=== PATIENT | male | born 1990 | race Caucasian/White ===

== ENCOUNTER → 2020-02-28 18:46 | Outpatient (BNVA) | payer OTHER, SELFPAY | PROVIDERS: Visit Provider Nurse Practitioner Family | DX: Z11.59 Encounter for screening for other viral diseases (principal); Z20.828 Contact with and (suspected) exposure to other viral communicable diseases | CPT/HCPCS: 87635 ==

== ENCOUNTER 2020-04-02 15:22 | Emergency (ER) | payer SELFPAY ==
[2020-04-02 15:22] VITALS: BP 165/84; PULSE 83; RESP 12; TEMP 36.4; O2SAT 99; BMI 27.4
[2020-04-02 15:28] VITALS: BP 152/97; PULSE 97; RESP 17; O2SAT 99
--- NOTE | 2020-04-02 15:39 | ED_ITS ---
HPI - Altered Mental Status General: Chief Complaint: Altered Mental Status Stated Complaint: Unresponsive Time Seen by Provider: 04/02/20 15:34 History of Present Illness: HPI narrative: 29-year-old male brought in by EMS unresponsive he was found on the street with a GCS of 3 in route here he was given Narcan 0.4 mg by nasal spray and had immediate response. Patient was awake and alert and oriented he denies using any drugs he is unsure of what happened he is knows where he is at but does not know how he got here. He vehemently denies use of any illicit narcotics or prescription narcotics. MD complaint: altered mental status, confusion and decreased responsiveness Onset (ago): unknown Severity: severe Context: drug abuse Associated symptoms: Deny auditory hallucinations, visual hallucinations, delusions, depression, homicidal ideation, racing thoughts or suicidal ideation Review of Systems Const: Denies: fever(s), chills, body aches, change in appetite, fatigue or malaise Card: Denies: chest pain, edema, dyspnea on exertion or orthopnea Resp: Denies: dyspnea, productive cough or non-productive cough GI: Denies: abdominal pain, nausea, vomiting, hematemesis, coffee ground emesis, diarrhea, constipation, bloating, hematochezia or melena : Denies: flank pain, dysuria, urinary frequency or urinary urgency Psych: Denies: depression, visual hallucinations, auditory hallucinations, suicidal ideation or homicidal ideation Physical Exam Const: COMMON NORMALS: no acute distress GENERAL APPEARANCE: cooperative and comfortable HENMT: COMMON NORMALS: normocephalic, atraumatic, hearing grossly normal bilaterally, external ears normal, EAC's normal, TM's normal bilaterally, Normal nasal mucous membranes and turbinates present, moist oral mucous membranes and oropharynx normal HEAD & SCALP: normocephalic and atraumatic NOSE: Normal nasal mucous membranes and turbinates present EXTERNAL EAR: Yes external ears normal EXTERNAL AUDITORY CANAL: EAC's normal TYMPANIC MEMBRANE: TM's normal bilaterally Eye: COMMON NORMALS: conjunctivae normal and no scleral icterus CONJUNCTIVA: Yes conjunctivae normal Neck/C-Spine: COMMON NORMALS: full ROM, no lymphadenopathy, supple and no JVD Lymph: LYMPHATIC: no lymphadenopathy noted and no lymphedema noted Resp: COMMON NORMALS: normal respiratory effort, No retractions, No use of accessory muscles and clear to auscultation bilaterally AUSCULTATION: clear to auscultation bilaterally Cardio: COMMON NORMALS: no JVD, regular rate, regular rhythm and No murmurs present (Cardio) RATE: regular rate RHYTHM: regular rhythm GI: COMMON NORMALS: Soft to palpation and No hepatosplenomegaly present AUSCULTATION: Yes normoactive bowel sounds PALPATION: Yes Soft to palpation, No Tenderness to palpation present (GI), No Guarding due to palpation present (GI) and Yes No hepatosplenomegaly present Extremity: COMMON NORMALS: normal to inspection, capillary refill normal, no clubbing, cyanosis or edema, no calf tenderness and no pedal edema Psych: THOUGHT CONTENT: No delusions Skin: COMMON NORMALS: no rashes or lesions noted GENERAL SKIN EXAM: no rashes or lesions noted Course Vital Signs: Vital signs: Vital Signs Temperature 97.5 F L 04/02/20 15:22 Pulse Rate 112 H 04/02/20 15:52 Respiratory Rate 16 04/02/20 15:52 Blood Pressure 152/97 04/02/20 15:28 Pulse Oximetry 99 04/02/20 15:52 MDM - Altered Mental Status MDM Narrative: Medical decision making narrative: After arrival patient decided leave AMA. I tried to dissuade him told him that we did not know what it actually happened for certain and he needed further evaluation without that he could have a recurrence could even he expressed understanding and wishes to leave he is alert and oriented x3 able to make his own decisions there is no reason at this point to prevent him from leaving and he refuses to be persuaded otherwise. He was advised he can return at any point to be reevaluated. At the time patient left he is awake and alert oriented he expresses understanding of the risks of leaving he denies any suicidal or homicidal intent I have nothing to justify keeping him here in the emergency room against his wishes at this point. Lab Data: Labs: Lab Results 04/02/20 04/02/20 Range/Units 15:31 15:31 WBC 9.7 (4.0-10.0) 10^3/ uL RBC 4.77 (4.1-5.3) 10^6/u L Hgb 13.5 (11.7-16.6) g/dL Hct 41.2 L (42.0-52.0) % MCV 86.4 (80-94) fL MCH 28.3 (28.0-34.0) pg MCHC 32.8 (30.0-36.0) g/dL RDW 13.1 (12.1-15.1) % Plt Count 266 (130-400) 10^3/c mm MPV 10.0 (7.4-10.4) fL Neut % (Auto) 53.2 % Lymph % (Auto) 31.9 % [place] % (Auto) 9.4 % Eos % (Auto) 4.6 % Baso % (Auto) 0.7 % Neut # (Auto) 5.13 (1.8-7.7) 10^3/u L Lymph # (Auto) 3.1 (0.8-4.8) 10^3/u L [place] # (Auto) 0.9 (0.2-0.9) 10^3/u L Eos # (Auto) 0.4 (0.0-0.8) 10^3/u L Baso # (Auto) 0.1 (0.0-0.1) 10^3/u L Nucleated RBC % (a uto) 0 % Nucleated RBCs # 0.0 /100WBC Sodium 138 (136-145) mmol/L Potassium 3.8 (3.5-5.1) mmol/L Chloride 103 (98-107) mmol/L Carbon Dioxide 26 (22-29) mmol/L Anion Gap 12.8 (5-19) BUN 12 (6-20) mg/dL Creatinine 1.0 (0.7-1.2) mg/dL GFR Calculation 88.3 L (90-130) mL/min Glucose 84 (65-115) mg/dL Calculated Osmolal ity 285 (285-295) mOsm/k g Calcium 9.4 (8.5-10.5) mg/dL Total Bilirubin 0.4 (0.15-1.2) mg/dL AST 29 (0-40) U/L ALT 32 (0-41) U/L Alkaline Phosphata se 82 (40-130) IU/L Creatine Kinase 196 (39-308) U/L Total Protein 7.4 (6.6-8.7) g/dL Albumin 4.4 (3.5-5.2) g/dL Globulin 3.0 (1.3-4.6) g/dL Discharge Plan Discharge Patient Disposition: Left Against Medical Advice Clinical Impression: Substance abuse Condition: Stable Prescriptions: No Action No Known Home Medications RF: 0 Interventions: ED Discharge Assessment Last Done: 04/02/20 15:52 ED Charges Last Done: 04/02/20 15:52 Coding Level of Care Code ED Negative Turner for Catalina Hayes
[2020-04-02 15:50] LABS: Basophils # 0.1 10^3/uL (0.0-0.1); Basophils % 0.7 %; Eosinophils # 0.4 10^3/uL (0.0-0.8); Eosinophils % 4.6 %; Hematocrit 41.2 % (42.0-52.0); Hemoglobin 13.5 g/dL (11.7-16.6); Lymphocytes # 3.1 10^3/uL (0.8-4.8); Lymphocytes % 31.9 %; Mean Corpuscular HGB Conc 32.8 g/dL (30.0-36.0); Mean Corpuscular Hemoglobin 28.3 pg (28.0-34.0); Mean Corpuscular Volume 86.4 fL (80-94); Monocytes # 0.9 10^3/uL (0.2-0.9); Monocytes % 9.4 %; Neutrophils # 5.13 10^3/uL (1.8-7.7); Neutrophils % 53.2 %; Nucleated Red Blood Cells % 0 %; Platelet Count 266 10^3/cmm (130-400); Red Blood Count 4.77 10^6/uL (4.1-5.3); Red Cell Distribution Width 13.1 % (12.1-15.1); White Blood Count 9.7 10^3/uL (4.0-10.0)
[2020-04-02 15:52] VITALS: PULSE 112; RESP 16; O2SAT 99
[2020-04-02 16:01] LABS: Alanine Aminotransferase 32 U/L (0-41); Albumin Level 4.4 g/dL (3.5-5.2); Alkaline Phosphatase 82 IU/L (40-130); Anion Gap 12.8 (5-19); Aspartate Amino Transferase 29 U/L (0-40); Blood Urea Nitrogen 12 mg/dL (6-20); Calcium 9.4 mg/dL (8.5-10.5); Carbon Dioxide 26 mmol/L (22-29); Chloride 103 mmol/L (98-107); Creatine Phosphokinase 196 U/L (39-308); Glomerular Filtration Rate 88.3 mL/min (90-130); Glucose 84 mg/dL (65-115); Osmolality Calculated 285 mOsm/kg (285-295); Potassium 3.8 mmol/L (3.5-5.1); Sodium 138 mmol/L (136-145); Total Bilirubin 0.4 mg/dL (0.15-1.2); Total Protein 7.4 g/dL (6.6-8.7)
== END 2020-04-02 15:53 | disposition left against medical advice (07) ==
LOC: ER 05-03 10:38
PROVIDERS: Emergency Provider Family Medicine
DX: F19.10 Other psychoactive substance abuse, uncomplicated (principal); Z53.21 Procedure and treatment not carried out due to patient leaving prior to being seen by health care provider
CPT/HCPCS: 12345; 80053; 82550; 85025; 99282

== ENCOUNTER 2022-07-13 16:46 | Emergency (ER) | payer SELFPAY ==
--- NOTE | 2022-07-13 16:49 | XRR_ITS ---
PROCEDURE INFORMATION: Exam: XR Chest Exam date and time: 07/13/2022 5:03 PM Age: 31 years old Clinical indication: Shortness of breath; Additional info: SOB TECHNIQUE: Imaging protocol: Radiologic exam of the chest. Views: 1 view. COMPARISON: No relevant prior studies available. FINDINGS: Lungs: Lungs are clear bilaterally. Pleural spaces: No pleural effusion. No pneumothorax. Heart/Mediastinum: The cardiac silhouette and mediastinal contours are unremarkable. Bones/joints: Unremarkable for age. XR/XR chest 1V portable [id number] IMPRESSION: Negative chest radiograph.
[2022-07-13 16:55] VITALS: BP 149/89; PULSE 76; RESP 16; TEMP 36.8; O2SAT 97; BMI 29.2
--- NOTE | 2022-07-13 17:24 | ED_ITS ---
HPI - SOB/Dyspnea General: Chief Complaint: Shortness of Breath/Dyspnea Stated Complaint: UPPER RESPIRATORY Time Seen by Provider: 07/13/22 16:59 History of Present Illness: HPI Narrative: 31-year-old male complaining of cough and shortness of breath for about the past month. He notes some wheezing at night. He has a history of asthma. He is on no medications. He has not taken anything for this. MD elicited complaint: shortness of breath and cough Pertinent past history: asthma Onset (ago): hour(s) Context: other Timing: intermittent Exacerbating factors: lying flat and exertion Relieving factors: nothing Known history of: asthma Associated symptoms: Reports chest congestion and cough; Deny abdominal pain, chest pain, dizziness, extremity pain, fever(s) or vomiting Treatment prior to arrival: none Review of Systems Const: Denies: fever(s) ENMT: Denies: throat pain Card: Denies: chest pain Resp: Reports: dyspnea, non-productive cough and chest congestion; Denies: productive cough GI: Denies: abdominal pain or vomiting Musc: Denies: extremity pain Neuro: Denies: dizziness PFSH ED PFSH: Social History Smoking and tobacco status: current every day smoker Physical Exam Const: COMMON NORMALS: no acute distress GENERAL APPEARANCE: cooperative; not ill appearing and not frail appearing HENMT: COMMON NORMALS: normocephalic, atraumatic and Normal external nose present HEAD & SCALP: normocephalic and atraumatic FACE & SINUS: normal facial exam and face symmetric NOSE: Normal external nose present Eye: COMMON NORMALS: Equal, round and reactive pupils present and EOMs intact bilaterally PUPIL: Yes Equal, round and reactive pupils present Neck/C-Spine: GENERAL: Yes trachea midline Chest: CHEST: Yes Symmetrical chest wall rise Resp: COMMON NORMALS: normal respiratory effort, No retractions and No use of accessory muscles AUSCULTATION: wheezes (slight intermittent. ) Cardio: COMMON NORMALS: regular rate and regular rhythm RATE: regular rate RHYTHM: regular rhythm GI: COMMON NORMALS: Normal to inspection, nondistended, normoactive bowel sounds present Extremity: COMMON NORMALS: no pedal edema Neuro: ALVAREZ COMA SCALE: document GCS findings Alvarez coma scale eye opening: Spontaneous [place] coma scale verbal response: Orientated [place] coma scale motor response: Obey commands [place] coma scale total score: 15 SENSORY EXAM: Yes extremities (intact) Psych: COMMON NORMALS: speech normal SPEECH: Yes normal speech Skin: COMMON NORMALS: no rashes or lesions noted GENERAL SKIN EXAM: no rashes or lesions noted Course Vital Signs: Vital signs: Vital Signs Temperature 98.3 F 07/13/22 16:55 Pulse Rate 58 L 07/13/22 17:59 Respiratory Rate 16 07/13/22 17:59 Blood Pressure 118/76 07/13/22 17:59 Pulse Oximetry 97 07/13/22 17:59 Oxygen Delivery Me thod 07/13/22 17:50 MDM - SOB/Dyspnea Medical Decision Making Chest x-ray is negative. History of asthma. He has some intermittent wheezing on exam. He has been sick for a month he says. Will cover with antibiotics, steroids and inhaler. He has no fever. Lab Data Labs/Radiology: Radiology Impressions Chest X-Ray 07/13/22 16:49 IMPRESSION: Negative chest radiograph. Discharge Plan Discharge Patient Disposition: Home Clinical Impression: Bronchitis Condition: Stable Prescriptions: New Medrol (Leonardo) 4 mg tablets,dose pack See Rx Instructions .ROUTE .COMPLEX Qty: 21 0RF Rx Instructions: orally per package directions Zithromax 250 mg tablet See Rx Instructions .ROUTE .COMPLEX Qty: 6 0RF Rx Instructions: For 250 mg dose pack: take 500 mg today (day 1), then 250 mg for 4 days (days 2-5) Discharge Orders: Discharge ED (Routine); Ordered 07/13/22 Ordered By: Abe Sheldon Patient Instructions: Acute Bronchitis (ED) Activity Restrictions/Additional Instructions: Use your inhaler every 4 hours while awake for the next 48 hours, then as needed. Other medications as directed. Return for worsening symptoms despite treatment. Coding Level of Care Code ED [place] Piler for Catalina Hayes
[2022-07-13] MEDS: azithromycin 250 mg Tablet 500 MG PO (17:37)
[2022-07-13] MEDS: predniSONE 20 mg Tablet 40 MG PO (17:38)
[2022-07-13] MEDS: albuterol 8 gm MDI 2 PUFF INHALATION (17:49)
[2022-07-13 17:50] VITALS: PULSE 77; RESP 18; O2SAT 93
[2022-07-13 17:59] VITALS: BP 118/76; PULSE 58; RESP 16; O2SAT 97
== END 2022-07-13 18:01 | disposition home or self-care (01) ==
PROVIDERS: Emergency Provider Emergency Medicine
DX: J44.9 Chronic obstructive pulmonary disease, unspecified (principal); F17.210 Nicotine dependence, cigarettes, uncomplicated
CPT/HCPCS: 71045; 94640; 99283; J3535; J7512; Q0144

== ENCOUNTER → 2023-07-13 11:59 | Outpatient (BNVA) | payer BC, MEDICAID, SELFPAY | PROVIDERS: Visit Provider Nurse Practitioner | DX: R09.81 Nasal congestion (principal) | CPT/HCPCS: 87400 ==